=== PATIENT | female | born 1960 | race American Indian/Alaskan Native ===

== ENCOUNTER 2020-04-10 00:18 | Emergency (ER) | payer SELFPAY ==
[2020-04-10 02:48] VITALS: BP 192/94
[2020-04-10] MEDS ORDERED: cloNIDine 0.1 MG TAB PO ONE (02:52)
[2020-04-10] MEDS ORDERED: ONDANSETRON 4 MG ODT TAB PO ONE (02:52)
== END 2020-04-10 08:37 ==
LOC: ED 00:18
DX: F15.23 Other stimulant dependence with withdrawal (principal); Z53.21 Procedure and treatment not carried out due to patient leaving prior to being seen by health care provider
CPT/HCPCS: Q0162